=== PATIENT | female | born 1995 ===

== ENCOUNTER 2017-01-25 14:21 | Emergency (ER) | payer SELFPAY | END 2017-01-25 15:22 | disposition left against medical advice (07) | LOC: ED 14:21 | DX: R11.10 Vomiting, unspecified (principal); Z53.21 Procedure and treatment not carried out due to patient leaving prior to being seen by health care provider ==

== ENCOUNTER 2017-09-17 16:10 | Emergency (ER) | payer BC ==
[2017-09-17 16:57] VITALS: BP 128/75
[2017-09-17] MEDS ORDERED: TYLENOL PO ONE (16:57)
== END 2017-09-17 22:35 | disposition left against medical advice (07) ==
LOC: ED 16:10
DX: J00 Acute nasopharyngitis [common cold] (principal); Z53.21 Procedure and treatment not carried out due to patient leaving prior to being seen by health care provider

== ENCOUNTER 2019-11-28 11:45 | Emergency (ER) | payer SELFPAY ==
[2019-11-28 11:51] VITALS: BP 125/68
--- NOTE | 2019-11-28 12:09 | Emergency Department Report ---
Chief Complaint: Earache Stated Complaint: EAR PAIN Time Seen by Provider: 11/28/19 12:01 - HPI History of Present Illness: 24 y/o female comes in for left ear pain times 2 days. Denies any fevers or chills. Admits that she recently washed her hair. Denies any cough or sob. - Exam Vital Signs: Vital Signs 11/28/19 11:46 Temperature 98.3 F Pulse Rate 97 H Respiratory 18 Rate Blood Pressure 125/68 O2 Sat by Pulse 99 Oximetry Physical Exam: AxO times 3 NAD talking on the phone. left ear tragus tenderness and canal tenderness. No erythema ambulatory without difficulties. MSE screening note: Focused history and physical exam performed. Due to findings the following was ordered: 24 y/o female comes in for left ear pain times 2 days. Denies any fevers or chills. Admits that she recently washed her hair. Denies any cough or sob. ED Disposition for MSE Disposition: Z-07 MED SCREENING EXAM-LEFT Is pt being admited?: No Does the pt Need Aspirin: No Condition: Stable Referrals: [facility] [Provider Group] - 3-5 Days
== END 2019-11-28 12:25 | disposition left against medical advice (07) ==
LOC: ED 11:45
DX: H92.02 Otalgia, left ear (principal)
CPT/HCPCS: 99281

== ENCOUNTER 2021-07-01 04:27 | Observation (INO) | payer BC ==
[2021-07-01] MEDS ORDERED: SODIUM CHLORIDE 0.9% 1000 ML 1,000 ML IV ONE (04:32)
[2021-07-01] MEDS ORDERED: ONDANSETRON 4 MG/2 ML INJ IV ONE (04:32)
[2021-07-01] MEDS ORDERED: MORPHINE 4 MG/1 ML INJ IV ONE ×2 (04:32→06:10)
--- NOTE | 2021-07-01 05:38 | Emergency Department Report ---
Blank Doc - Documentation Documentation: Screening note Patient is a 25-year-old female who presents emergency department right lower quadrant pain, subjective fevers, nausea vomiting. Patient is concerned that her appendix could have ruptured. She denies a history of previous surgeries. She denies history of any ovarian pathology. Patient's exam notable for mild right lower quadrant tenderness and suprapubic abdominal tenderness. Patient has received IV fluids, Zofran, morphine and her symptoms are improved. Patient is awaiting labs and CT abdomen pelvis with contrast.
[2021-07-01 05:50] LABS: Basophils % (Auto) 0.8 % (0.0-1.8); Eosinophils % (Auto) 1.4 % (0.0-4.3); Hematocrit 31.9 % (30.3-42.9); Lymphocytes # (Auto) 0.7 K/mm3 (1.2-5.4); Lymphocytes % (Auto) 19.1 % (13.4-35.0); Mean Corpuscular HGB Conc 32 % (30-34); Mean Corpuscular Volume 76 fl (79-97); Monocytes # (Auto) 0.4 K/mm3 (0.0-0.8); Monocytes % (Auto) 10.2 % (0.0-7.3); Platelet Count 246 K/mm3 (140-440); Red Blood Count 4.19 M/mm3 (3.65-5.03); Red Cell Distribution Width 18.1 % (13.2-15.2)
[2021-07-01 06:09] LABS: Alanine Aminotransferase 17 units/L (7-56); Blood Urea Nitrogen 10 mg/dL (7-17); Calcium 8.9 mg/dL (8.4-10.2); Hemolysis Index 4
--- NOTE | 2021-07-01 06:12 | Emergency Department Report ---
ED Abdominal Pain HPI - General Chief Complaint: Abdominal Pain Stated Complaint: ABDOMINAL PAIN PUI?: No Time Seen by Provider: 07/01/21 06:02 Source: patient Mode of arrival: Ambulatory Limitations: Physical Limitation - History of Present Illness Initial Comments: The patient is a 25-year-old female. She is not known to myself previously. She does not have a local primary care doctor or [facility] physician. She presents to the ER with a complaint of diffuse lower abdominal pain, with nausea and vomiting. Abdominal pain started 3 to 4 days ago, in the suprapubic region, and then migrated primary to the right lower quadrant. There is nausea, vomiting and anorexia. The patient denies the possibility of , and STI. Patient denies male sexual partners, and reports that she is only intimate with female partners. Last gynecological exam was "a few years ago." Denies headache, neck pain, chest pain, urinary symptoms, focal extremity weakness and numbness. The patient states "I think it is my appendix." MD Complaint: abdominal pain -: Gradual, days(s) Location: suprapubic Radiation: RLQ Migration to: RLQ Severity: severe Severity scale (0 -10): 10 Quality: cramping, stabbing, aching Consistency: constant Improves With: medication, rest Worsens With: medication Associated Symptoms: nausea, vomiting, anorexia - Related Data Allergies Allergy/AdvReac Type Severity Reaction Status Date / Time coconut Allergy Swelling Verified 11/28/19 11:51 onion Allergy Itching Verified 11/28/19 11:51 orange Allergy Anaphylaxis Verified 11/28/19 11:51 ED Review of Systems ROS: Stated complaint: ABDOMINAL PAIN Other details as noted in HPI Constitutional: malaise, weakness Eyes: denies: eye discharge ENT: denies: epistaxis Respiratory: denies: cough Cardiovascular: denies: chest pain Gastrointestinal: abdominal pain, nausea, vomiting. denies: diarrhea Genitourinary: denies: dysuria Musculoskeletal: back pain Neurological: weakness Psychiatric: anxiety Hematological/Lymphatic: denies: easy bleeding ED Past Medical Hx - Past Medical History Previous Medical History?: Yes Hx Asthma: Yes Additional medical history: HEART MURMUR - Surgical History Past Surgical History?: No - Social History Smoking Status: Never Smoker Substance Use Type: None ED Physical Exam - General Limitations: Physical Limitation General appearance: alert, anxious - Head Head exam: Present: atraumatic, normocephalic - Eye Eye exam: Present: normal appearance, EOMI. Absent: nystagmus - ENT ENT exam: Present: normal exam, normal orophraynx, mucous membranes moist, normal external ear exam - Neck Neck exam: Present: normal inspection, full ROM. Absent: tenderness, meningismus - Respiratory Respiratory exam: Present: normal lung sounds bilaterally. Absent: respiratory distress, wheezes, rales, rhonchi, stridor, decreased breath sounds - Cardiovascular Cardiovascular Exam: Present: regular rate, normal rhythm, normal heart sounds. Absent: bradycardia, tachycardia, irregular rhythm, systolic murmur, diastolic murmur, rubs, gallop - GI/Abdominal GI/Abdominal exam: Present: soft, tenderness, guarding, rebound. Absent: distended, pulsatile mass - Extremities Exam Extremities exam: Present: normal inspection, full ROM, other (2+ pulses noted in the bilateral upper and lower extremities. There is no palpable cord. negative Homans sign. Muscular compartments are soft. The pelvis is stable.). Absent: pedal edema, calf tenderness - Back Exam Back exam: Present: normal inspection, CVA tenderness (R). Absent: tenderness, CVA tenderness (L), paraspinal tenderness, vertebral tenderness - Neurological Exam Neurological exam: Present: alert, oriented X3, other (No facial droop. Tongue midline. Extraocular movements intact bilaterally. Facial sensation intact to light touch in V1, V2, V3 distribution bilaterally. 5 and a 5 strength in 4 extremities. Sensation intact to light touch in 4 extremities.). Absent: motor sensory deficit - Psychiatric Psychiatric exam: Present: normal affect, normal mood, anxious - Skin Skin exam: Present: warm, dry, intact, normal color. Absent: rash ED Course Vital Signs 07/01/21 07/01/21 07/01/21 04:28 04:43 05:10 Temperature 98.5 F Pulse Rate 92 H Respiratory 18 Rate Blood Pressure 121/57 [Right] O2 Sat by Pulse 100 99 98 Oximetry - Reevaluation(s) Reevaluation #1: 07/01/21 06:31 Differential diagnosis, including but not limited to: Acute appendicitis, perforated viscus, renal colic, urinary tract infection, inflammatory bowel disease, ovarian cyst, ovarian torsion, pelvic inflammatory disease Assessment and plan: 25-year-old female, with an acute abdomen, suprapubic and right lower quadrant pain, tenderness, rebound and guarding, with anorexia, very suspicious for appendicitis. The patient denies urinary symptoms. We will treat her pain aggressively, and CT scan abdomen pelvis will be obtained. I have a very high clinical suspicion for appendicitis. If CT scan of the abdomen pelvis does not demonstrate an acute surgical process, we will proceed with gynecologic examination, pelvic ultrasound, and further work-up. I discussed this with the patient. She articulated understanding. She has provided consent for pelvic examination if necessary. Reassess after CT scan abdomen pelvis has been completed. 07/01/21 08:02 CT scan abdomen pelvis demonstrates tubular structure and cystic ovarian structure. This is concerning for ovarian torsion. Contacted gynecology on-call, Dr. Saint Carcamo. Discussed the patient's history, physical, laboratory studies and imaging studies and my clinical impression. She request that the patient be transferred to the mother-baby service. Pelvic ultrasound being performed at this time by the histologist technologist, she reports decreased ovarian flow to the right ovary. Dr. Vijay Carcamo advises that the patient be n.p.o., we may hold antibiotics at this time, continue IV fluids, she further advises that parenteral narcotics may be administered. Pulmonary findings are reviewed and appreciated. The patient denies Covid symptoms, denies cough and shortness of breath, she also reports that she is COVID-19 vaccinated. These pulmonary findings may be incidental, atelectatic, I do not suspect an acute pulmonary process at this time, the patient's emergent process today is her pelvic/gynecologic issue. I discussed these recommendations with the patient, and she is agreeable to admission. ED Medical Decision Making - Lab Data Result diagrams: 07/01/21 05:28 07/01/21 05:28 Vital Signs 07/01/21 07/01/21 04:28 05:10 Temperature 98.5 F Pulse Rate 92 H Respiratory 18 Rate Blood Pressure 121/57 [Right] O2 Sat by Pulse 100 98 Oximetry Lab Results 07/01/21 07/01/21 07/01/21 Range/Units 05:28 05:28 05:28 WBC 3.5 L (4.5-11.0) K/mm3 RBC 4.19 (3.65-5.03) M/mm3 Hgb 10.0 L (10.1-14.3) gm/dl Hct 31.9 (30.3-42.9) % MCV 76 L (79-97) fl MCH 24 L (28-32) pg MCHC 32 (30-34) % RDW 18.1 H (13.2-15.2) % Plt Count 246 (140-440) K/mm3 Lymph % (Auto) 19.1 (13.4-35.0) % [place] % (Auto) 10.2 H (0.0-7.3) % Eos % (Auto) 1.4 (0.0-4.3) % Baso % (Auto) 0.8 (0.0-1.8) % Lymph # (Auto) 0.7 L (1.2-5.4) K/mm3 [place] # (Auto) 0.4 (0.0-0.8) K/mm3 Eos # (Auto) 0.0 (0.0-0.4) K/mm3 Baso # (Auto) 0.0 (0.0-0.1) K/mm3 Seg Neutrophils % 68.5 (40.0-70.0) % Seg Neutrophils # 2.4 (1.8-7.7) K/mm3 Sodium 139 (137-145) mmol/L Potassium 3.5 L (3.6-5.0) mmol/L Chloride 104.8 (98-107) mmol/L Carbon Dioxide 21 L (22-30) mmol/L Anion Gap 17 mmol/L BUN 10 (7-17) mg/dL Creatinine 0.5 L (0.6-1.2) mg/dL Estimated GFR > 60 ml/min BUN/Creatinine Ratio 20 % Glucose 94 (65-100) mg/dL Calcium 8.9 (8.4-10.2) mg/dL Total Bilirubin 0.70 (0.1-1.2) mg/dL AST 21 (5-40) units/L ALT 17 (7-56) units/L Alkaline Phosphatase 71 (35-129) units/L Total Protein 7.0 (6.3-8.2) g/dL Albumin 4.0 (3.9-5) g/dL Albumin/Globulin Ratio 1.3 % HCG, Qual Negative (Negative) - Radiology Data Radiology results: report reviewed, image reviewed CT abdomen pelvis w con INDICATION / CLINICAL INFORMATION: R.L.Q. abdominal pain x 3 days, getting worse each day.. TECHNIQUE: Axial CT images were obtained through the abdomen and pelvis after 100 cc Omnipaque [address] scans at this location are performed using CT dose reduction for ALARA by means of automated exposure control. COMPARISON: None available. FINDINGS: LOWER CHEST: Scattered tree-in-bud opacities are present within the lower lungs. No focal airspace consolidation. LIVER: No significant abnormality GALLBLADDER/BILIARY TREE: No significant abnormality PANCREAS: No significant abnormality SPLEEN: No significant abnormality ADRENALS: No significant abnormality KIDNEYS / URETER: No significant abnormality URINARY BLADDER: Bladder is partially decompressed, though grossly unremarkable. REPRODUCTIVE ORGANS: There is a large slightly tubular cystic structure in the right adnexa, measuring 7.5 cm in craniocaudal dimension and 5.8 x 4.4 cm transaxially. There is mass effect on the uterus. Small volume free fluid. Left adnexa is unremar kable. STOMACH / BOWEL: No significant abnormality. The appendix is normal in caliber. LYMPH NODES: No significant adenopathy. VASCULATURE: No significant abnormality. OTHER: No free air, free fluid, or focal fluid collection is identified. SKELETAL SYSTEM: No acute osseous findings. IMPRESSION: 1. Large somewhat tubular right adnexal cystic structure. This may reflect a complex right ovarian cyst. This could also reflect hydrosalpinx. Recommend further evaluation with pelvic ultrasound. 2. Mild tree-in-bud opacities within the lower lungs, likely reflecting atypical infectious or inflammatory process. 3. Otherwise, no acute abnormality. Signer Name: Johnny Pineda MD Signed: 07/01/2021 6:06 AM Workstation Name: [id number] [facility] [address] [place] [address] Ultrasound Report Signed Patient: BETI PRATER MR#: [id number] : 1995 Acct:[id number] Age/Sex: 25 / F ADM Date: 07/01/21 Loc: ED Attend ing Dr: Ordering Physician: MARLO SMART MD Date of Service: 07/01/21 Procedure(s): US transvaginal Accession Number(s): [id number] cc: MARLO SMART MD ULTRASOUND PELVIS INDICATION / CLINICAL INFORMATION: lower abd pain. TECHNIQUE: Transabdominal and Transvaginal. Duplex Color Doppler used: Yes. COMPARISON: None available FINDINGS: UTERUS: Present. - Appearance (if present): No significant abnormality. - Size in cm (if present): 7.5 x 3.3 x 4.2. - Endometrial Complex (if present): No significant abnormality.. Thickness in cm (if measured) = 0.53 - Mass lesions: None. - Additional findings: None. RIGHT ADNEXA: There is a 6.9 cm complex right ovarian mass with low-level internal echoes. Normal color Doppler blood flow in the right ovary. LEFT ADNEXA: No significant ovarian cyst or mass. Normal color Doppler blood flow. URINARY BLADDER: No significant abnormality. FREE FLUID: None. ADDITIONAL FINDINGS: None. IMPRESSION: 1. Complex lesion in the right ovary with low-level internal echoes has a sonographic appearance most suggestive of an endometrioma. This could also be a hemorrhagic cyst. FUR BLOWER consultation recommended. Signer Name: Nicholas Marinelli MD Signed: 07/01/2021 8:30 AM Workstation Name: [id number] Transcribed By: ART Dictated By: Nicholas Marinelli MD Electronically Authenticated By: Nicholas Marinelli MD Signed Date/Time: 07/01/21829 DD/ 7 Critical care attestation.: If time is entered above; I have spent that time in minutes in the direct care of this critically ill patient, excluding procedure time. ED Disposition Clinical Impression: Acute abdominal pain, Ovarian mass, right Disposition: 09 ADMITTED INPATIENT Is pt being admited?: Yes Does the pt Need Aspirin: No Condition: Good
[2021-07-01 06:13] LABS: BUN/Creatinine Ratio 20
[2021-07-01] MEDS ORDERED: HYDROmorphone 1 MG/1 ML INJ IV ONE (06:26)
--- NOTE | 2021-07-01 07:11 | Cat Scan Report ---
CT abdomen pelvis w con INDICATION / CLINICAL INFORMATION: R.L.Q. abdominal pain x 3 days, getting worse each day.. TECHNIQUE: Axial CT images were obtained through the abdomen and pelvis after 100 cc Omnipaque [address] scans at this location are performed using CT dose reduction for ALARA by means of automated exposure control. COMPARISON: None available. FINDINGS: LOWER CHEST: Scattered tree-in-bud opacities are present within the lower lungs. No focal airspace co nsolidation. LIVER: No significant abnormality GALLBLADDER/BILIARY TREE: No significant abnormality PANCREAS: No significant abnormality SPLEEN: No significant abnormality ADRENALS: No significant abnormality KIDNEYS / URETER: No significant abnormality URINARY BLADDER: Bladder is partially decompressed, though grossly unremarkable. REPRODUCTIVE ORGANS: There is a large slightly tubular cystic structure in the right adnexa, measurin g 7.5 cm in craniocaudal dimension and 5.8 x 4.4 cm transaxially. There is mass effect on the uterus. Small volume free fluid. Left adnexa is unremarkable. STOMACH / BOWEL: No significant abnormality. The appendix is normal in caliber. LYMPH NODES: No significant adenopathy. VASCULATURE: No significant abnormality. OTHER: No free air, free fluid, or focal fluid collection is identified. SKELETAL SYSTEM: No acute osseous findings. IMPRESSION: 1. Large somewhat tubular right adnexal cystic structure. This may reflect a complex right ovarian cy st. This could also reflect hydrosalpinx. Recommend further evaluation with pelvic ultrasound. 2. Mild tree-in-bud opacities within the lower lungs, likely reflecting atypical infectious or inflam matory process. 3. Otherwise, no acute abnormality. Signer Name: Johnny Pineda MD Signed: 07/01/2021 7:06 AM Workstation Name: [employer][id number]
[2021-07-01 08:13] LABS: Bilirubin,Urine NEG (Negative); Blood,Urine NEG (Negative); Color,Urine Straw (Yellow); Mucus,Urine 1+ /HPF; Protein,Urine <15 mg/dL mg/dL (Negative); Urobilinogen,Urine < 2.0 mg/dL (<2.0)
--- NOTE | 2021-07-01 08:34 | Ultrasound Report ---
ULTRASOUND PELVIS INDICATION / CLINICAL INFORMATION: lower abd pain. TECHNIQUE: Transabdominal and Transvaginal. Duplex Color Doppler used: Yes. COMPARISON: None available FINDINGS: UTERUS: Present. - Appearance (if present): No significant abnormality. - Size in cm (if present): 7.5 x 3.3 x 4.2. - Endometrial Complex (if present): No significant abnormality.. Thickness in cm (if measured) = 0.53 - Mass lesions: None. - Additional findings: None. RIGHT ADNEXA: There is a 6.9 cm complex right ovarian mass with low-level internal echoes. Normal col or Doppler blood flow in the right ovary. LEFT ADNEXA: No significant ovarian cyst or mass. Normal color Doppler blood flow. URINARY BLADDER: No significant abnormality. FREE FLUID: None. ADDITIONAL FINDINGS: None. IMPRESSION: 1. Complex lesion in the right ovary with low-level internal echoes has a sonographic appearance most suggestive of an endometrioma. This could also be a hemorrhagic cyst. RHINESTONE SETTER consultation recommended. Signer Name: Nicholas Marinelli MD Signed: 07/01/2021 8:30 AM Workstation Name: [id number]
--- NOTE | 2021-07-01 08:34 | Ultrasound Report ---
ULTRASOUND PELVIS INDICATION / CLINICAL INFORMATION: lower abd pain. TECHNIQUE: Transabdominal and Transvaginal. Duplex Color Doppler used: Yes. COMPARISON: None available FINDINGS: UTERUS: Present. - Appearance (if present): No significant abnormality. - Size in cm (if present): 7.5 x 3.3 x 4.2. - Endometrial Complex (if present): No significant abnormality.. Thickness in cm (if measured) = 0.53 - Mass lesions: None. - Additional findings: None. RIGHT ADNEXA: There is a 6.9 cm complex right ovarian mass with low-level internal echoes. Normal col or Doppler blood flow in the right ovary. LEFT ADNEXA: No significant ovarian cyst or mass. Normal color Doppler blood flow. URINARY BLADDER: No significant abnormality. FREE FLUID: None. ADDITIONAL FINDINGS: None. IMPRESSION: 1. Complex lesion in the right ovary with low-level internal echoes has a sonographic appearance most suggestive of an endometrioma. This could also be a hemorrhagic cyst. GROWTH HACKER consultation recommended. Signer Name: Nicholas Marinelli MD Signed: 07/01/2021 8:30 AM Workstation Name: [id number]
[2021-07-01] MEDS: MORPHINE 4 MG/1 ML INJ IV PRN ×3 (13:23→23:25)
[2021-07-01] MEDS: LACTATED RINGERS 1,000 ML IV SCH ×2 (13:27→23:25)
--- NOTE | 2021-07-01 17:24 | History and Physical Report ---
History of Present Illness Date of examination: 07/01/21 Date of admission: 07/01/21 08:03 Chief complaint: Right lower quadrant pain History of present illness: Patient is 25-year-old 0 who presented ED last night with complaint of right lower quadrant pain of 3 days duration. Patient stated the pain started on the last day of her last cycle. She states she also had some vomiting in conjunction with the pain, however that has resolved. She has only minimal pain at this time. Patient does not have a CORPORATE SCHEDULER has not seen one in over 8 years. Ultrasound in the ED revealed a 6 cm ovarian cyst. Past History Past Medical History: asthma Past Surgical History: no surgical history Family/Genetic History: none Social history: single Medications and Allergies Allergies Allergy/AdvReac Type Severity Reaction Status Date / Time coconut Allergy Swelling Verified 11/28/19 11:51 onion Allergy Itching Verified 11/28/19 11:51 orange Allergy Anaphylaxis Verified 11/28/19 11:51 Home Medications Medication Instructions Recorded Confirmed Last Taken Type traMADoL [Ultram 50 MG tab] 100 mg PO Q6HR PRN #60 tablet 07/01/21 Unknown Rx Active Meds: Active Medications Lactated Ringer's (Lactated Ringers) 1,000 mls @ 150 mls/hr IV DIRECT HUONG Last Admin: 07/01/21 13:27 Dose: 150 mls/hr Documented by: Morphine Sulfate (Morphine 4 Mg/1 Ml Inj) 4 mg IV Q4H PRN PRN Reason: Pain, Moderate (4-6) Last Admin: 07/01/21 13:23 Dose: 4 mg Documented by: Review of Systems All systems: negative Breasts: deferred Gastrointestinal: abdominal pain Genitourinary: deferred, pelvic pain Rectal Exam: deferred - Vital Signs Vital signs: Vital Signs Temp Pulse Resp BP Pulse Ox 98.5 F 92 H 18 121/57 100 07/01/21 04:28 07/01/21 04:28 07/01/21 04:28 07/01/21 04:28 07/01/21 04:28 Temp Pulse Resp BP Pulse Ox 97.8 F 63 18 92/60 100 07/01/21 16:09 07/01/21 16:09 07/01/21 16:09 07/01/21 16:09 07/01/21 16:09 - Physical Exam Breasts: Cardiovascular: Regular rate, Normal S1, Normal S2 Lungs: Positive: Clear to auscultation, Normal air movement Abdomen: Positive: normal appearance, soft, normal bowel sounds. Negative: distention, tenderness Genitourinary (Female): Positive: normal external genitalia, normal perenium Vulva: both: normal Vagina: Positive: normal moisture. Negative: discharge Cervix: Negative: lesion, discharge Uterus: Positive: normal size, normal contour Adnexa: both: normal Anus/Rectum: Positive: normal perianal skin, heme negative. Negative: rectal mass, hemorrhoids Extremities: Deep Tendon Reflex Grade: Normal +2 Results Result Diagrams: 07/01/21 05:28 07/01/21 05:28 Abnormal lab results 07/01/21 07/01/21 07/01/21 Range/Units 05:28 05:28 Unknown WBC 3.5 L (4.5-11.0) K/mm3 Hgb 10.0 L (10.1-14.3) gm/dl MCV 76 L (79-97) fl MCH 24 L (28-32) pg RDW 18.1 H (13.2-15.2) % [place] % (Auto) 10.2 H (0.0-7.3) % Lymph # (Auto) 0.7 L (1.2-5.4) K/mm3 Potassium 3.5 L (3.6-5.0) mmol/L Carbon Dioxide 21 L (22-30) mmol/L Creatinine 0.5 L (0.6-1.2) mg/dL Ur Specific [place] > 1.059 H (1.003-1.030) All other labs normal. Assessment and Plan Pt here with minimal rlq pain and tenderness with ovarian cyst. It is unlikely that cyst is new as patient has not had academic services coordinator care in several years. Pt does not h ave an acute abdomen and does not appear to need surgery urgently. Advised patient that if she remains comfortable and stable overnight, she will be able to go home in the am with outpatient follow up.
[2021-07-01] MEDS ORDERED: ONDANSETRON 4 MG/2 ML INJ IV PRN (20:23)
[2021-07-02] MEDS: MORPHINE 4 MG/1 ML INJ IV PRN (06:59)
[2021-07-02] MEDS: LACTATED RINGERS 1,000 ML IV SCH (06:59)
[2021-07-02 13:18] VITALS: BP 121/61
== END 2021-07-02 14:59 | disposition home or self-care (01) ==
LOC: ED 04:27 → OB 08:03
PROVIDERS: ADMIT Obstetrics & Gynecology; ATTEND Obstetrics & Gynecology
DX: R10.31 Right lower quadrant pain (principal); Z20.822 Contact with and (suspected) exposure to COVID-19; N83.201 Unspecified ovarian cyst, right side; J45.909 Unspecified asthma, uncomplicated; R11.2 Nausea with vomiting, unspecified
CPT/HCPCS: 36415; 74177; 76830; 80053; 81001; 84703; 85025; 93975; 96361; 96374; 96375; 96376; 99285; G0378; J1170; J2270; J2405; J7030; J7120; Q9967; U0003; J3490; Q0162